=== PATIENT | female | born 1970 | race Caucasian/White ===

== ENCOUNTER 2019-12-15 05:26 | Day surgery (SDC) | payer OTHER ==
[2019-12-14 16:34] LABS: BASOPHILS % (AUTO) 0.4 % (0-1); EOSINOPHILS # (AUTO) 0.3 X10'3 (0-0.9); EOSINOPHILS % (AUTO) 6.4 % (0-6); LYMPHOCYTES # (AUTO) 1.2 X10'3 (1.1-4.8); LYMPHOCYTES % (AUTO) 27.1 % (21-51); MEAN CORPUSCULAR HEMOGLOBIN 30.9 PG (27.0-31.0); MEAN CORPUSCULAR HGB CONC 33.5 g/dL (33.0-36.5); MEAN CORPUSCULAR VOLUME 92.3 FL (78-98); MEAN PLATELET VOLUME 8.6 FL (7.4-10.4); MONOCYTES # (AUTO) 0.5 X10'3 (0-0.9); MONOCYTES % (AUTO) 10.7 % (2-12); NEUTROPHILS # (AUTO) 2.4 X10'3 (1.8-7.7); NEUTROPHILS % (AUTO) 55.4 % (42-75); PRE OP HEMATOCRIT 35.6 % (35.0-45.0); PRE OP HEMOGLOBIN 11.9 g/dL (12.0-16.0); PRE OP PLATELET COUNT 243 X10'3 (140-440); RED BLOOD COUNT 3.85 X10'6 (4.20-5.60); RED CELL DISTRIBUTION WIDTH 14.3 % (11.5-14.5)
[2019-12-14 16:40] LABS: CLARITY,URINE CLEAR (Clear); COLOR,URINE YELLOW (Yellow); GLUCOSE, URINE NEGATIVE (Neg); KETONES,URINE NEGATIVE (Neg); LEUKOCYTE ESTERASE ,URINE NEGATIVE (Neg); NITRITES, URINE NEGATIVE (Neg); OCCULT BLOOD,URINE NEGATIVE (Neg); PROTEIN,URINE NEGATIVE (Neg); UA COLLECTION TYPE CLN CATCH MIDSTREAM; UROBILINOGEN,URINE 0.2 E.U/dL (0.2-1.0)
[2019-12-14 16:51] LABS: ALBUMIN/GLOBULIN RATIO 1.2 (1.1-1.5); ALKALINE PHOSPHATASE 66 IU/L (46-116); BLOOD UREA NITROGEN 8 MG/DL (7-18); BUN/CREATININE RATIO 9.1 (6.6-38.0); CALCIUM 9.1 MG/DL (8.5-10.1); CHLORIDE 107 MMOL/L (99-107); CREATININE 0.88 MG/DL (0.40-0.90); PRE OP ALT 21 U/L (30-65); PRE OP ANION GAP 6 (8-16); PRE OP AST 17 U/L (10-37); PRE OP BILIRUB, TOTAL 0.3 MG/DL (0.0-1.0); PRE OP GLUCOSE 100 MG/DL (70-104); PRE OP POTASSIUM 4.1 MMOL/L (3.4-5.1); PRE OP SODIUM 144 MMOL/L (135-145); TOTAL CARBON DIOXIDE 30.8 MMOL/L (24-32); TOTAL PROTEIN 7.3 G/DL (6.4-8.2); eGFR 68 ML/MIN
[2019-12-15] VITALS (10 sets, daily range): BP systolic 91–107; BP diastolic 54–66
[~2019-12-15] VITALS: Ht 157.5 cm; Wt 64.4 kg
[~2019-12-15 05:26] MED LIST: PREG50CA PO; ringers solution, lacted 1,000 ML IV SCH
[2019-12-15] MEDS ORDERED: famotidine 10mg tablet PO ONE (05:30)
[2019-12-15] MEDS ORDERED: clindamycin-Cleocin 900mg/D5W 50 ML IV ONE (05:30)
[2019-12-15] MEDS ORDERED: VANCOMYCIN INJ 1000 MG in NORMAL SALINE 250ml IV.SOLN IV ONE (05:30)
[2019-12-15] MEDS ORDERED: LIDOcaine 1% (10mg/ml) 2ml vial ONE (05:57)
[2019-12-15] MEDS ORDERED: BUPIVAcaine/PF 2.5 mg/ml (0.25%) 30ml vial ONE (06:48)
[2019-12-15] MEDS ORDERED: sevoflurane 250ml liquid IH ONE (07:08)
[2019-12-15] MEDS ORDERED: fentaNYL/PF 50MCG/1 ML 2ML syringe ONE (07:12)
[2019-12-15] MEDS ORDERED: midazolam 2 mg/2 ml injection ONE (07:13)
[2019-12-15] MEDS ORDERED: ROPIVAcaine 0.5% (5mg/ml) 30ml vial ONE (07:13)
[2019-12-15] MEDS ORDERED: propofol inj 20 ML IV ONE (07:14)
[2019-12-15] MEDS ORDERED: cloNIDine hcl/PF 100mcg/ml inj ONE (07:14)
[2019-12-15] MEDS ORDERED: LIDOcaine 2% (20mg/ml) 5ml vial ONE (07:15)
[2019-12-15] MEDS ORDERED: ondansetron/PF 4mg/2ml inj ONE (07:32)
[2019-12-15] MEDS ORDERED: dexamethasone sod phosphate 4mg/ml inj. ONE (07:32)
[2019-12-15] MEDS ORDERED: ringers solution, lacted 1,000 ML IV SCH (08:13)
[2019-12-15] MEDS ORDERED: proCHLORperazine 10 MG/2 ml inj IV PRN (08:15)
[2019-12-15] MEDS ORDERED: morphine 4 MG/ML inj SYRINge IV PRN ×2 (08:15)
[2019-12-15] MEDS ORDERED: meperidine/PF 25mg/ml syringe IV PRN ×3 (08:15)
[2019-12-15] MEDS ORDERED: ondansetron/PF 4mg/2ml inj IV PRN (08:15)
[2019-12-15] MEDS ORDERED: HYDROcodone/acetaminophen 10/325mg tab PO PRN (08:45)
--- NOTE | 2019-12-15 08:59 | NUR ---
Received from OR via , accompanied by Anesthesiologist TRIP and report given by Anesthesiolgist. BEGINING TO AWAKEN, ORAL AIRWAY REMOVED, SPONT DEEP RESP. NO CO PAIN DSG DI, RUE IN SLING FINGERS WARM PINK GOOD CAP REFILL. HOB AND RUE ELEVATED.
--- NOTE | 2019-12-15 11:59 | NUR ---
AWAKE VS WNL, DSG DI SLING TO RUE ON AND PT IS COMFORTABLE WITH IT. ICE TO SHOULDER. FINGERS WARM PINK GOOD CAP REFILL. DISCH INSTR GIVEN TO PT AND AND U NDERSTOOD. DISCH HOME
== END 2019-12-15 11:15 | disposition home or self-care (01) ==
LOC: PAS 05:26
PROVIDERS: ATTEND Orthopaedic Surgery
DX: M75.41 Impingement syndrome of right shoulder (principal); M75.51 Bursitis of right shoulder; G43.909 Migraine, unspecified, not intractable, without status migrainosus; G89.18 Other acute postprocedural pain; Z88.0 Allergy status to penicillin; Z98.890 Other specified postprocedural states; Z80.0 Family history of malignant neoplasm of digestive organs; Z79.899 Other long term (current) drug therapy
CPT/HCPCS: 29823; 36415; 64415; 80053; 81003; 82948; 85025; J0735; J1100; J2001; J2250; J2405; J2704; J3010; J3370; J3490; J7120; A4618; A6449; A7000; J2795